=== PATIENT | female | born 1990 | race African-American/Black ===

== ENCOUNTER 2019-04-29 14:16 | Emergency (ER) | payer MEDICAID ==
[~2019-04-29] VITALS: Ht 172.7 cm; Wt 100.0 kg
[2019-04-29] MEDS: OLANZAPINE 10MG TABLET PO SCH (16:45)
[2019-04-30 11:32] LABS: CLARITY URINE CLOUDY (CLEAR); COLOR URINE DARK YELLOW (YELLOW); KETONES URINE 1+ (NEGATIVE); LEUKOCYTE ESTERASE URINE TRACE (NEGATIVE); NITRITE URINE NEGATIVE (NEGATIVE); OCCULT BLOOD URINE NEGATIVE (NEGATIVE); PH URINE 5.5 (4.5-8.0); PROTEIN URINE 1+ (NEGATIVE)
[2019-04-30 11:52] LABS: *BARBITURATES SCREEN URINE NEGATIVE (NEGATIVE); *BENZODIAZEPINES SCREEN URINE NEGATIVE (NEGATIVE); *COCAINE SCREEN URINE NEGATIVE (NEGATIVE)
[2019-04-30 11:53] LABS: CANNABINOID URINE SCREEN NEGATIVE (NEGATIVE); METHADONE URINE SCREEN NEGATIVE (NEGATIVE); OPIATES URINE SCREEN NEGATIVE (NEGATIVE); PHENCYCLIDINE URINE SCREEN NEGATIVE (NEGATIVE)
[2019-04-30 11:55] LABS: *AMPHETAMINES SCREEN URINE PRESUMTIVE POSITIVE (NEGATIVE)
[2019-04-30] MEDS: DIVALPROEX SODIUM 500MG ER TABLET PO SCH (18:30)
[2019-04-30] MEDS: OLANZAPINE 10MG TABLET PO SCH ×2 (19:01→21:04)
[2019-05-01] MEDS: OLANZAPINE 10MG TABLET PO SCH ×2 (09:00→09:32)
[2019-05-01] MEDS: DIVALPROEX SODIUM 500MG ER TABLET PO SCH (09:32)
[2019-05-01 22:45] VITALS: BP 112/70
== END 2019-05-01 22:45 ==
LOC: ER 14:30
DX: F41.9 Anxiety disorder, unspecified (principal); R45.851 Suicidal ideations; R07.89 Other chest pain; F15.10 Other stimulant abuse, uncomplicated
CPT/HCPCS: 80305; 81003; 81025; 99285

== ENCOUNTER 2019-06-20 11:08 | Emergency (ER) | payer MEDICAID ==
[~2019-06-20] VITALS: Ht 175.3 cm; Wt 100.0 kg
[2019-06-20 12:26] LABS: CLARITY URINE CLOUDY (CLEAR); COLOR URINE YELLOW (YELLOW); KETONES URINE TRACE (NEGATIVE); LEUKOCYTE ESTERASE URINE TRACE (NEGATIVE); NITRITE URINE NEGATIVE (NEGATIVE); OCCULT BLOOD URINE NEGATIVE (NEGATIVE); PH URINE 7.5 (4.5-8.0); PROTEIN URINE NEGATIVE (NEGATIVE); SPECIFIC GRAVITY URINE 1.023 (1.005-1.030)
[2019-06-20 13:08] LABS: *BARBITURATES SCREEN URINE NEGATIVE (NEGATIVE); *BENZODIAZEPINES SCREEN URINE NEGATIVE (NEGATIVE); *COCAINE SCREEN URINE NEGATIVE (NEGATIVE); METHADONE URINE SCREEN NEGATIVE (NEGATIVE); OPIATES URINE SCREEN NEGATIVE (NEGATIVE)
[2019-06-20 13:12] LABS: CANNABINOID URINE SCREEN NEGATIVE (NEGATIVE); PHENCYCLIDINE URINE SCREEN NEGATIVE (NEGATIVE)
[2019-06-20 13:18] LABS: BASOPHILS % 0.3 % (0.0-2.0); HEMATOCRIT. 38.7 % (36.0-48.0); HEMOGLOBIN. 13.2 g/dL (12.0-16.0); LYMPHOCYTES % 23.9 % (20.0-50.0); MEAN CORPUSCULAR HEMOGLOBIN 33.9 pg (28.0-32.0); MEAN CORPUSCULAR VOLUME 99.3 fL (81.0-99.0); MEAN PLATELET VOLUME 7.4 fl (7.4-10.4); MONOCYTES % 12.5 % (2.0-8.0); NEUTROPHILS % 62.3 % (40.0-76.0); PLATELET 276 x1000/uL (130-400); RED BLOOD CELL COUNT 3.89 mill/uL (4.2-5.4); RED CELL DISTRIBUTION WIDTH 13.6 % (11.6-14.6)
[2019-06-20 13:23] LABS: CHLORIDE 104 mEq/L (98-107)
[2019-06-20 13:25] LABS: *AMPHETAMINES SCREEN URINE PRESUMTIVE POSITIVE (NEGATIVE)
[2019-06-20 13:26] LABS: ETHANOL BLOOD < 10 mg/dL
[2019-06-20 14:00] LABS: HCG SCREEN NEGATIVE
[2019-06-20] MEDS ORDERED: DIVALPROEX SODIUM 500MG DR TABLET PO ONE (19:15)
[2019-06-20] MEDS: OLANZAPINE 10MG TABLET PO SCH (19:45)
[2019-06-20] MEDS: NITROFURANTOIN 100MG M/M CAPSULE PO SCH (20:57)
[2019-06-20] MEDS ORDERED: ACETAMINOPHEN 325MG TABLET PO ONE (21:00)
[2019-06-21] MEDS: NITROFURANTOIN 100MG M/M CAPSULE PO SCH ×2 (09:00→20:57)
[2019-06-21] MEDS: OLANZAPINE 10MG TABLET PO SCH ×2 (09:00→23:59)
[2019-06-21] MEDS ORDERED: VALPROIC ACID 250MG CAPSULE PO ONE (10:15)
[2019-06-21] MEDS ORDERED: QUETIAPINE FUMARATE 50MG TABLET PO SCH (23:02)
[2019-06-21] MEDS: DIVALPROEX SODIUM 500MG ER TABLET PO SCH (23:59)
[2019-06-21] MEDS: HYDROXYZINE 25MG TABLET PO SCH (23:59)
[2019-06-22] MEDS ORDERED: QUETIAPINE FUMARATE 50MG TABLET PO ONE (00:15)
[2019-06-22] MEDS: OLANZAPINE 10MG TABLET PO SCH ×2 (09:00→17:00)
[2019-06-22] MEDS: DIVALPROEX SODIUM 500MG ER TABLET PO SCH (14:00)
[2019-06-22] MEDS: NITROFURANTOIN 100MG M/M CAPSULE PO SCH (14:00)
[2019-06-22] MEDS: HYDROXYZINE 25MG TABLET PO SCH ×2 (14:00→17:00)
[2019-06-22] MEDS ORDERED: ACETAMINOPHEN 325MG TABLET PO ONE (19:45)
[2019-06-22] MEDS ORDERED: QUETIAPINE FUMARATE 50MG TABLET PO SCH (21:00)
[2019-06-23] MEDS: NITROFURANTOIN 100MG M/M CAPSULE PO SCH ×2 (02:09→09:00)
[2019-06-23] MEDS: OLANZAPINE 10MG TABLET PO SCH ×2 (09:00→17:00)
[2019-06-23] MEDS: HYDROXYZINE 25MG TABLET PO SCH ×2 (09:00→17:18)
[2019-06-23 20:57] VITALS: BP 130/74
== END 2019-06-23 20:58 ==
LOC: ER 11:08
DX: F23 Brief psychotic disorder (principal); R45.851 Suicidal ideations; F16.10 Hallucinogen abuse, uncomplicated; F15.10 Other stimulant abuse, uncomplicated; F31.9 Bipolar disorder, unspecified; F41.9 Anxiety disorder, unspecified; Z75.1 Person awaiting admission to adequate facility elsewhere
CPT/HCPCS: 36415; 80053; 80165; 80305; 80307; 80320; 80329; 81003; 81025; 84703; 85025; 99285; Z7610; G0480

== ENCOUNTER 2019-07-13 07:57 | Emergency (ER) | payer MEDICAID ==
[~2019-07-13] VITALS: Ht 175.3 cm; Wt 100.0 kg
[2019-07-13] MEDS ORDERED: LORAZEPAM 1MG TABLET PO ONE (08:15)
[2019-07-13] MEDS ORDERED: OLANZAPINE 5MG TABLET ODT PO ONE (08:15)
[2019-07-13 08:29] LABS: BASOPHILS % 0.4 % (0.0-2.0); EOSINOPHILS % 0.9 % (0.0-5.0); HEMOGLOBIN. 13.9 g/dL (12.0-16.0); LYMPHOCYTES % 26.3 % (20.0-50.0); MEAN CORPUSCULAR VOLUME 100.2 fL (81.0-99.0); MEAN PLATELET VOLUME 7.3 fl (7.4-10.4); MONOCYTES % 5.6 % (2.0-8.0); NEUTROPHILS % 66.8 % (40.0-76.0); PLATELET 302 x1000/uL (130-400); RED BLOOD CELL COUNT 4.09 mill/uL (4.2-5.4); RED CELL DISTRIBUTION WIDTH 13.5 % (11.6-14.6)
[2019-07-13 08:36] LABS: CHLORIDE 107 mEq/L (98-107)
[2019-07-13 08:40] LABS: ETHANOL BLOOD < 10 mg/dL
[2019-07-13 08:46] LABS: HCG SCREEN NEGATIVE
[2019-07-13 10:09] LABS: CLARITY URINE CLEAR (CLEAR); COLOR URINE YELLOW (YELLOW); KETONES URINE NEGATIVE (NEGATIVE); LEUKOCYTE ESTERASE URINE 1+ (NEGATIVE); NITRITE URINE NEGATIVE (NEGATIVE); OCCULT BLOOD URINE NEGATIVE (NEGATIVE); PH URINE 7.5 (4.5-8.0); PROTEIN URINE NEGATIVE (NEGATIVE); SPECIFIC GRAVITY URINE 1.015 (1.005-1.030)
[2019-07-13 10:27] LABS: *BARBITURATES SCREEN URINE NEGATIVE (NEGATIVE); *BENZODIAZEPINES SCREEN URINE NEGATIVE (NEGATIVE); *COCAINE SCREEN URINE NEGATIVE (NEGATIVE); METHADONE URINE SCREEN NEGATIVE (NEGATIVE); OPIATES URINE SCREEN NEGATIVE (NEGATIVE); PHENCYCLIDINE URINE SCREEN NEGATIVE (NEGATIVE)
[2019-07-13 10:28] LABS: *AMPHETAMINES SCREEN URINE PRESUMTIVE POSITIVE (NEGATIVE); CANNABINOID URINE SCREEN NEGATIVE (NEGATIVE)
[2019-07-13 14:30] VITALS: BP 125/78
== END 2019-07-13 15:44 | disposition home or self-care (01) ==
LOC: ER 07:57
DX: R45.851 Suicidal ideations (principal); F15.10 Other stimulant abuse, uncomplicated; Z59.0 Homelessness
CPT/HCPCS: 36415; 80053; 80305; 80307; 80320; 80329; 81003; 81025; 84703; 85025; 99285; G0480

== ENCOUNTER 2019-07-23 02:44 | Emergency (ER) | payer MEDICAID ==
[~2019-07-23] VITALS: Ht 177.8 cm; Wt 95.0 kg
[2019-07-23] MEDS ORDERED: LORAZEPAM 2MG/ML CPJ IM STA (03:26)
[2019-07-23 04:15] LABS: BASOPHILS % 0.4 % (0.0-2.0); EOSINOPHILS % 0.9 % (0.0-5.0); HEMATOCRIT. 41.2 % (36.0-48.0); HEMOGLOBIN. 14.2 g/dL (12.0-16.0); LYMPHOCYTES % 28.4 % (20.0-50.0); MEAN CORPUSCULAR HEMOGLOBIN 34.1 pg (28.0-32.0); MEAN PLATELET VOLUME 7.5 fl (7.4-10.4); MONOCYTES % 6.9 % (2.0-8.0); NEUTROPHILS % 63.4 % (40.0-76.0); PLATELET 331 x1000/uL (130-400); RED BLOOD CELL COUNT 4.16 mill/uL (4.2-5.4)
[2019-07-23] MEDS ORDERED: OLANZAPINE 10MG TABLET PO SCH (04:15)
[2019-07-23 04:17] LABS: CHLORIDE 106 mEq/L (98-107)
[2019-07-23 04:22] LABS: ETHANOL BLOOD < 10 mg/dL
[2019-07-23] MEDS ORDERED: POTASSIUM CHLORIDE 20MEQ TABLET SR PO ONE (04:45)
[2019-07-23] MEDS ORDERED: DIPHENHYDRAMINE 50MG/ML VIAL IM ONE (05:45)
[2019-07-23 09:19] LABS: CHLORIDE 105 mEq/L (98-107)
[2019-07-23 11:21] LABS: CLARITY URINE CLEAR (CLEAR); COLOR URINE DARK YELLOW (YELLOW); KETONES URINE NEGATIVE (NEGATIVE); LEUKOCYTE ESTERASE URINE TRACE (NEGATIVE); NITRITE URINE NEGATIVE (NEGATIVE); OCCULT BLOOD URINE 1+ (NEGATIVE); PROTEIN URINE TRACE (NEGATIVE); SPECIFIC GRAVITY URINE 1.031 (1.005-1.030)
[2019-07-23 11:34] LABS: *BARBITURATES SCREEN URINE NEGATIVE (NEGATIVE); *BENZODIAZEPINES SCREEN URINE NEGATIVE (NEGATIVE); *COCAINE SCREEN URINE NEGATIVE (NEGATIVE)
[2019-07-23 11:35] LABS: CANNABINOID URINE SCREEN NEGATIVE (NEGATIVE); METHADONE URINE SCREEN NEGATIVE (NEGATIVE); OPIATES URINE SCREEN NEGATIVE (NEGATIVE); PHENCYCLIDINE URINE SCREEN NEGATIVE (NEGATIVE)
[2019-07-23 11:55] LABS: *AMPHETAMINES SCREEN URINE PRESUMTIVE POSITIVE (NEGATIVE)
[2019-07-24 10:15] VITALS: BP 121/60
== END 2019-07-24 15:07 ==
LOC: ER 02:44
DX: R45.851 Suicidal ideations (principal); F41.9 Anxiety disorder, unspecified; F31.9 Bipolar disorder, unspecified; F20.9 Schizophrenia, unspecified; F15.10 Other stimulant abuse, uncomplicated; E87.6 Hypokalemia; Z59.0 Homelessness
CPT/HCPCS: 36415; 80048; 80053; 80305; 80320; 81003; 81025; 85025; 96372; 99285; J2060; G0480